=== PATIENT | male | born 1985 | race Caucasian/White ===

== ENCOUNTER 2021-05-14 11:08 | Inpatient (IN) | payer BC, OTHER ==
[2021-05-14 11:52] LABS: Hemoglobin 12.7 g/dL (13.5-17.5); Mean Corpuscular HGB CONC 34.6 g/dL (32.0-36.0); Mean Corpuscular Hemoglobin 34.3 pg (27.0-33.0); Mean Corpuscular Volume 99.2 fl (81.2-95.1); Mean Platelet Volume 10.6 fl (7.4-10.4); Platelet Count 305 10x3/uL (150-450); RBC Distribution Width 17.5 % (11.5-14.5); White Blood Cell (WBC) Count 22.9 10x3/uL (3.5-10.5)
[2021-05-14 12:00] LABS: ALT (SGPT) 53 U/L (8-55); AST (SGOT) 270 U/L (5-34); Alkaline Phosphatase 207 U/L (40-110); Anion Gap 14 mmol/L (10-20); BUN (Urea Nitrogen) 10 mg/dL (8.9-20.6); Calc. Creatinine Clearance 0 mL/min (70-130); Carbon Dioxide 21 mmol/L (22-29); Chloride 100 mmol/L (98-107); Globulin 3.6 g/dL (2.4-3.5); Glucose 92 mg/dL (70-105); Lipase 130 U/L (8-78); Protein, Total 6.6 g/dL (6.0-8.3); Sodium 131 mmol/L (136-145)
[2021-05-14 12:01] LABS: ALT (SGPT) 53 U/L (8-55); AST (SGOT) 269 U/L (5-34); Alkaline Phosphatase 200 U/L (40-110); Bilirubin, Total 23.9 mg/dL (0.2-1.2); Protein, Total 6.5 g/dL (6.0-8.3)
[2021-05-14 12:20] LABS: MDiff Complete? YES
[2021-05-14 12:24] LABS: Band 6 % (5-11); Eosinophils 1 % (0-10); Lymphocytes 10 % (21-51); Monocytes 10 % (0-10); Neutrophil 71 % (42-75); Reactive Lymphocytes 1 % (0-10)
[2021-05-14 12:27] LABS: Target Cells SLIGHT = 2-5 cells (100X) (0-1/hpf)
[2021-05-14 12:28] LABS: Platelet Morphology Comment Appears Adequate
[2021-05-14 12:47] LABS: Bilirubin, Direct 17.3 mg/dL (0.1-0.3)
[2021-05-14] MEDS ORDERED: Piperacillin/Tazobactam 3.375 GM VIAL ONE (14:23)
[2021-05-14] MEDS ORDERED: traMADol HCl 50 MG TAB ONE (14:33)
[2021-05-14 14:50] LABS: INR-International Normal Ratio 1.3; Prothrombin Time 14.7 sec (9.5-12.1)
[2021-05-14] MEDS ORDERED: cefTRIAXone\\ROCEPHIN 1 GM VIAL ONE (15:00)
[2021-05-14] MEDS ORDERED: Ondansetron ODT 4 MG TAB PO PRN (15:48)
[2021-05-14] MEDS ORDERED: Ondansetron PF 4 MG/2 ML Vial IVP PRN (15:48)
[2021-05-14] MEDS ORDERED: cefTRIAXone\\ROCEPHIN 1 GM in Sodium Chloride 0.9% 100 ML IVPB SCH (17:00)
[2021-05-14] MEDS ORDERED: prednisoLONE 15 MG/5 ML UDCUP PO SCH (17:00)
[2021-05-14 17:34] LABS: SARS-CoV-2 NAA Rapid Test Not Detected (NotDetected)
[2021-05-14 17:59] LABS: Acetaminophen Less than 6.0 mcg/mL (10.0-30.0); Alcohol Less than 10 mg/dL (Less than 10)
[2021-05-14 21:35] VITALS: BMI 30.5
[2021-05-14] MEDS ORDERED: Fentanyl 100 MCG/2 ML VIAL SLOW IVP SCH (22:30)
[2021-05-15 00:30] LABS: Amphetamine Not Detected (NotDetected); Barbiturates Screen Not Detected (NotDetected); Benzodiazepine Screen Detected (NotDetected); Cocaine Metabolite Screen Not Detected (NotDetected); Methadone Not Detected (NotDetected); Methamphetamine Not Detected (NotDetected); Opiate Screen Not Detected (NotDetected); Oxycodone Screen Not Detected (NotDetected); Phencyclidine (PCP) Not Detected (NotDetected); THC/Cannabinoid Screen Detected (NotDetected); Tricyclic Screen Not Detected (NotDetected)
[2021-05-15] MEDS ORDERED: FLU VACC QS2021-22(6MOS UP)/PF 60 MCG/0.5 ML SYRINGE IM ONE (02:30)
[2021-05-15] MEDS ORDERED: Morphine 4 MG/ML VIAL SLOW IVP SCH (02:45)
[2021-05-15] MEDS ORDERED: Fentanyl 100 MCG/2 ML VIAL SLOW IVP SCH (02:45)
[2021-05-15 05:23] LABS: Hemoglobin 11.4 g/dL (13.5-17.5); Mean Corpuscular Hemoglobin 34.4 pg (27.0-33.0); Mean Corpuscular Volume 98.5 fl (81.2-95.1); Red Blood Cell (RBC) Count 3.31 10x6/uL (4.32-5.72); White Blood Cell (WBC) Count 22.8 10x3/uL (3.5-10.5)
[2021-05-15 05:24] LABS: Mean Platelet Volume 10.5 fl (7.4-10.4); Platelet Count 281 10x3/uL (150-450); RBC Distribution Width 17.1 % (11.5-14.5)
[2021-05-15 05:25] LABS: ALT (SGPT) 45 U/L (8-55); AST (SGOT) 203 U/L (5-34); Acetaminophen Less than 6.0 mcg/mL (10.0-30.0); Albumin 2.6 g/dL (3.5-5.0); Alkaline Phosphatase 168 U/L (40-110); Anion Gap 13 mmol/L (10-20); BUN (Urea Nitrogen) 9 mg/dL (8.9-20.6); Bilirubin, Total 20.9 mg/dL (0.2-1.2); Calc. Creatinine Clearance 205 mL/min (70-130); Calcium 8.4 mg/dL (7.8-10.44); Carbon Dioxide 20 mmol/L (22-29); Chloride 103 mmol/L (98-107); Globulin 2.9 g/dL (2.4-3.5); Glucose 106 mg/dL (70-105); Iron Binding Capacity, Total 161 mcg/dL (261-462); Potassium 3.9 mmol/L (3.5-5.1); Protein, Total 5.5 g/dL (6.0-8.3); Sodium 132 mmol/L (136-145)
[2021-05-15 05:33] LABS: Ferritin 715.52 ng/mL (22-322)
[2021-05-15 05:54] LABS: Iron 53 ug/dL (65-175)
[2021-05-15 06:45] LABS: MDiff Complete? YES
[2021-05-15 06:46] LABS: Platelet Morphology Comment Appears Adequate; RBC Morphology Normal
[2021-05-15 06:49] LABS: Lymphocytes 7 % (21-51); Monocytes 6 % (0-10); Neutrophil 87 % (42-75)
[2021-05-15] MEDS: prednisoLONE 15 MG/5 ML UDCUP PO SCH (08:44)
[2021-05-15] MEDS: Enoxaparin Sodium 40 MG/0.4 ML SYRINGE SC SCH (08:45)
[2021-05-15 12:42] LABS: HBCM Index 0.09 S/CO (0-0.79); HBSAg Index 0.33 S/CO (0-0.99); Hep A IgM AB Non-Reactive (NonReactive); Hep A IgM S/CO 0.09 S/CO (0-0.79); Hep B Surf Ag Non-Reactive S/CO (NonReactive); Hep C IgG Ab Non-Reactive (NonReactive); Hep C Index 0.07 S/CO (0-0.79); Hepatitis B Core IgM Abs Non-Reactive (NonReactive)
[2021-05-15] MEDS: Morphine 4 MG/ML VIAL SLOW IVP PRN ×2 (17:10→21:42)
[2021-05-15] MEDS: cefTRIAXone\\ROCEPHIN 1 GM in Sodium Chloride 0.9% 100 ML IVPB SCH (17:11)
[2021-05-16] MEDS: Morphine 4 MG/ML VIAL SLOW IVP PRN ×2 (04:49→17:58)
[2021-05-16 04:53] LABS: #Basophils 0.2 10x3/uL (0.0-0.2); #Eosinphils 0.2 10x3/uL (0.0-0.5); #Neutrophils 12.8 10x3/uL (1.5-8.4); %Eosinophils 0.9 % (0.0-6.0); %Lymphocytes 11.4 % (18.0-47.0); %Monocytes 6.1 % (0.0-10.0); Mean Corpuscular HGB CONC 34.7 g/dL (32.0-36.0); Mean Corpuscular Hemoglobin 34.2 pg (27.0-33.0); Mean Corpuscular Volume 98.4 fl (81.2-95.1); Mean Platelet Volume 10.7 fl (7.4-10.4); Platelet Count 276 10x3/uL (150-450); RBC Distribution Width 17.2 % (11.5-14.5); Red Blood Cell (RBC) Count 3.22 10x6/uL (4.32-5.72); White Blood Cell (WBC) Count 16.8 10x3/uL (3.5-10.5)
[2021-05-16 04:57] LABS: INR-International Normal Ratio 1.6; Prothrombin Time 16.8 sec (9.5-12.1)
[2021-05-16 05:17] LABS: ALT (SGPT) 44 U/L (8-55); AST (SGOT) 178 U/L (5-34); Albumin 2.5 g/dL (3.5-5.0); Alkaline Phosphatase 176 U/L (40-110); Anion Gap 12 mmol/L (10-20); BUN (Urea Nitrogen) 12 mg/dL (8.9-20.6); Bilirubin, Total 16.3 mg/dL (0.2-1.2); Calc. Creatinine Clearance 199 mL/min (70-130); Calcium 8.3 mg/dL (7.8-10.44); Carbon Dioxide 20 mmol/L (22-29); Chloride 105 mmol/L (98-107); Globulin 2.7 g/dL (2.4-3.5); Glucose 78 mg/dL (70-105); Potassium 3.2 mmol/L (3.5-5.1); Protein, Total 5.2 g/dL (6.0-8.3); Sodium 134 mmol/L (136-145)
[2021-05-16 05:23] LABS: HIV (1/2) Antibody/Antigen Non-Reactive (NonReactive); HIV 1/2 INDEX 0.09 S/CO (<1.00)
[2021-05-16] MEDS ORDERED: diphenhydrAMINE 25 MG CAP PO SCH (06:15)
[2021-05-16] MEDS: Enoxaparin Sodium 40 MG/0.4 ML SYRINGE SC SCH (09:14)
[2021-05-16] MEDS: prednisoLONE 15 MG/5 ML UDCUP PO SCH (09:14)
[2021-05-16 13:09] LABS: HBSAB Concentration 51.33 mIU/mL; Hep B Surf AB Reactive (NonReactive)
[2021-05-16] MEDS: cefTRIAXone\\ROCEPHIN 1 GM in Sodium Chloride 0.9% 100 ML IVPB SCH (15:58)
[2021-05-17] MEDS: Morphine 4 MG/ML VIAL SLOW IVP PRN ×4 (02:37→22:57)
[2021-05-17 04:20] LABS: #Basophils 0.1 10x3/uL (0.0-0.2); #Eosinphils 0.2 10x3/uL (0.0-0.5); #Monocytes 1.1 10x3/uL (0.0-1.1); #Neutrophils 15.6 10x3/uL (1.5-8.4); %Basophils 0.5 % (0.0-2.0); %Eosinophils 0.9 % (0.0-6.0); %Lymphocytes 10.4 % (18.0-47.0); %Monocytes 5.7 % (0.0-10.0); %Neutrophils 79.5 % (40.0-75.0); Hemoglobin 11.3 g/dL (13.5-17.5); Mean Corpuscular Hemoglobin 33.7 pg (27.0-33.0); Mean Corpuscular Volume 99.1 fl (81.2-95.1); Mean Platelet Volume 10.6 fl (7.4-10.4); Platelet Count 298 10x3/uL (150-450); Red Blood Cell (RBC) Count 3.35 10x6/uL (4.32-5.72); White Blood Cell (WBC) Count 19.7 10x3/uL (3.5-10.5)
[2021-05-17 04:42] LABS: INR-International Normal Ratio 1.5; Prothrombin Time 16.3 sec (9.5-12.1)
[2021-05-17 04:48] LABS: Anion Gap 15 mmol/L (10-20); BUN (Urea Nitrogen) 13 mg/dL (8.9-20.6); Bilirubin, Total 15.2 mg/dL (0.2-1.2); Calc. Creatinine Clearance 182 mL/min (70-130); Calcium 8.4 mg/dL (7.8-10.44); Carbon Dioxide 20 mmol/L (22-29); Chloride 104 mmol/L (98-107); Glucose 87 mg/dL (70-105); Potassium 3.5 mmol/L (3.5-5.1); Protein, Total 5.2 g/dL (6.0-8.3); Sodium 135 mmol/L (136-145)
[2021-05-17 04:49] LABS: ALT (SGPT) 58 U/L (8-55); AST (SGOT) 234 U/L (5-34); Albumin 2.6 g/dL (3.5-5.0); Alkaline Phosphatase 174 U/L (40-110); Globulin 2.6 g/dL (2.4-3.5)
[2021-05-17] MEDS: Escitalopram Oxalate 10 mg Tablet PO SCH (09:24)
[2021-05-17] MEDS: Enoxaparin Sodium 40 MG/0.4 ML SYRINGE SC SCH (09:24)
[2021-05-17] MEDS: prednisoLONE 15 MG/5 ML UDCUP PO SCH (09:24)
[2021-05-17] MEDS ORDERED: prednisoLONE 15 MG/5 ML UDCUP PO SCH (11:39)
[2021-05-17 15:37] LABS: Smooth Muscle Total ABS 11 Units (0-19)
[2021-05-17] MEDS: diphenhydrAMINE 25 MG CAP PO PRN ×2 (16:06→22:57)
[2021-05-17] MEDS: Lorazepam 0.5 MG TAB PO PRN (22:57)
[2021-05-18 05:21] LABS: Hemoglobin 11.8 g/dL (13.5-17.5); Mean Corpuscular HGB CONC 34.5 g/dL (32.0-36.0); Mean Corpuscular Hemoglobin 34.3 pg (27.0-33.0); Mean Corpuscular Volume 99.4 fl (81.2-95.1); Mean Platelet Volume 10.6 fl (7.4-10.4); Platelet Count 294 10x3/uL (150-450); RBC Distribution Width 16.9 % (11.5-14.5); Red Blood Cell (RBC) Count 3.44 10x6/uL (4.32-5.72); White Blood Cell (WBC) Count 20.7 10x3/uL (3.5-10.5)
[2021-05-18 05:56] LABS: ALT (SGPT) 66 U/L (8-55); AST (SGOT) 241 U/L (5-34); Albumin 2.6 g/dL (3.5-5.0); Alkaline Phosphatase 165 U/L (40-110); Anion Gap 13 mmol/L (10-20); BUN (Urea Nitrogen) 11 mg/dL (8.9-20.6); Bilirubin, Total 15.6 mg/dL (0.2-1.2); Calc. Creatinine Clearance 215 mL/min (70-130); Calcium 8.6 mg/dL (7.8-10.44); Carbon Dioxide 18 mmol/L (22-29); Chloride 104 mmol/L (98-107); Globulin 2.7 g/dL (2.4-3.5); Glucose 84 mg/dL (70-105); Potassium 3.4 mmol/L (3.5-5.1); Protein, Total 5.3 g/dL (6.0-8.3); Sodium 132 mmol/L (136-145)
[2021-05-18] MEDS: Morphine 4 MG/ML VIAL SLOW IVP PRN ×2 (05:57→12:15)
[2021-05-18 06:46] LABS: Manual Diff?? YES
[2021-05-18 06:47] LABS: MDiff Complete? YES
[2021-05-18 06:49] LABS: Band 1 % (5-11); Eosinophils 1 % (0-10); Lymphocytes 6 % (21-51); Monocytes 3 % (0-10); Neutrophil 88 % (42-75)
[2021-05-18 06:50] LABS: Anisocytosis SLIGHT = 6-15 cells (100X) (0-5/hpf); Platelet Morphology Comment Appears Adequate
[2021-05-18 06:51] LABS: Hypochromia SLIGHT = 6-15 cells (100X) (0-5/hpf); Target Cells SLIGHT = 2-5 cells (100X) (0-1/hpf)
[2021-05-18] MEDS: Enoxaparin Sodium 40 MG/0.4 ML SYRINGE SC SCH (09:26)
[2021-05-18] MEDS: Escitalopram Oxalate 10 mg Tablet PO SCH (09:27)
[2021-05-18] MEDS: Lorazepam 0.5 MG TAB PO PRN (12:16)
[2021-05-18 12:19] VITALS: BP 118/70; TEMP 97.2
[2021-05-18 17:37] LABS: CMV DNA-PCR Test Negative (Negative)
== END 2021-05-18 13:35 | disposition home or self-care (01) | DRG 432 ==
LOC: CSHERS 11:08 → CSHERHOLD 15:38 → CSHTELE 21:33
PROVIDERS: ADMIT Family Medicine; ATTEND Family Medicine
DX: K70.11 Alcoholic hepatitis with ascites (principal); K85.20 Alcohol induced acute pancreatitis without necrosis or infection; K76.6 Portal hypertension; I85.10 Secondary esophageal varices without bleeding; Z20.822 Contact with and (suspected) exposure to COVID-19; K76.89 Other specified diseases of liver; K70.31 Alcoholic cirrhosis of liver with ascites; F41.9 Anxiety disorder, unspecified; I10 Essential (primary) hypertension; K76.0 Fatty (change of) liver, not elsewhere classified; F10.10 Alcohol abuse, uncomplicated; Z79.52 Long term (current) use of systemic steroids; Z79.899 Other long term (current) drug therapy; Z88.0 Allergy status to penicillin; Z90.49 Acquired absence of other specified parts of digestive tract; Z80.0 Family history of malignant neoplasm of digestive organs; Z80.8 Family history of malignant neoplasm of other organs or systems
CPT/HCPCS: 36415; 74177; 76705; 80053; 80074; 80143; 80306; 80307; 82105; 82150; 82390; 82525; 82728; 83516; 83540; 83550; 83690; 85025; 85610; 85730; 86038; 86225; 86706; 86708; 87040; 87389; 87497; 87798; 94760; 96365; J0696; J1650; J2270; J2543; J3010; J3490; J7510; U0002